=== PATIENT | female | born 1990 | race African-American/Black ===

== ENCOUNTER 2019-04-02 01:13 | Inpatient (IN) ==
[2019-04-02] MEDS ORDERED: SODIUM CHLORIDE 0.9% 1,000 ML IV STA (01:27)
[2019-04-02] MEDS ORDERED: diphenhydrAMINE 50 MG/1 ML VIAL IV STA (01:28)
[2019-04-02] MEDS ORDERED: HYDROmorphone 2 MG/1 ML VIAL IV STA ×3 (01:28→04:04)
[2019-04-02 01:52] LABS: Basophils # 0.1 10*3/uL (0.0-0.2); Basophils % 0.4 % (0.0-0.8); Eosinophils # 0.1 10*3/uL (0.0-0.87); Eosinophils % 0.7 % (0.00-10.9); Hemoglobin 7.6 GM/DL (12.0-16.0); Immature Granulocytes % 0.7 %; Immature Granulocytes Absolute 0.12 #; Lymphocytes # 2.7 10*3/uL (1.4-4.0); Mean Platelet Volume 8.7 FL (9.6-12.0); Monocytes % 5.5 % (1.7-12.7); NRBC # 0.05 10*3/uL; Neutrophils % 76.7 % (38.7-73.9); Platelet Count 220 T/CUMM (130-400); Red Blood Count 2.91 MC/CUMM (3.8-5.5); Red Cell Distribution Width 15.5 % (9.3-17.3); White Blood Count 16.6 T/CUMM (4-12)
[2019-04-02 02:33] LABS: Albumin 3.8 G/DL (3.4-5.0); Bilirubin,Total 1.1 MG/DL (0.2-1.0); Calcium 8.5 MG/DL (8.5-10.1); Osmolality,Calculated 279.3 MOS/KG (273-304); Total Protein 7.1 G/DL (6.4-8.3)
[2019-04-02] MEDS ORDERED: diphenhydrAMINE CAP 25 MG CAPSULE PO PRN (06:09)
[2019-04-02] MEDS ORDERED: oxyCODONE/ACETAMINOPHEN 5-325 MG TABLET PO PRN (06:09)
[2019-04-02] MEDS ORDERED: ONDANSETRON 4 MG/2 ML VIAL IV PRN (06:09)
[2019-04-02] MEDS ORDERED: ZALEPLON 5 MG CAPSULE PO PRN (06:09)
[2019-04-02] MEDS ORDERED: ACETAMINOPHEN 325 MG TABLET PO PRN (06:09)
[2019-04-02] MEDS: SODIUM CHLORIDE 0.9% 1,000 ML IV SCH ×4 (06:24→23:19)
[2019-04-02] MEDS: HYDROmorphone 2 MG/1 ML VIAL IV PRN ×5 (06:24→20:00)
[2019-04-02] MEDS: FOLIC ACID 1 MG TABLET PO SCH (08:40)
[2019-04-02] MEDS: PREGABALIN 75 MG CAPSULE PO SCH ×3 (08:40→20:54)
[2019-04-02] MEDS: ENOXAPARIN 40 MG/0.4 ML SYRINGE SUBCUT SCH (08:40)
[2019-04-03] MEDS: HYDROmorphone 2 MG/1 ML VIAL IV PRN ×6 (00:32→21:07)
[2019-04-03] MEDS: SODIUM CHLORIDE 0.9% 1,000 ML IV SCH ×4 (03:52→21:12)
[2019-04-03 05:23] LABS: Basophils % 0.3 % (0.0-0.8); Eosinophils # 0.2 10*3/uL (0.0-0.87); Eosinophils % 1.5 % (0.00-10.9); Hematocrit 21.2 VOL% (35.7-47.0); Hemoglobin 6.8 GM/DL (12.0-16.0); Immature Granulocytes % 0.4 %; Immature Granulocytes Absolute 0.05 #; Lymphocytes # 2.7 10*3/uL (1.4-4.0); Lymphocytes % 23.5 % (21.3-54.2); Mean Corpuscular HGB Conc 32.1 GM/DL (32-36); Mean Corpuscular Volume 79.4 FL (87-102); Mean Platelet Volume 9.8 FL (9.6-12.0); Monocytes % 6.3 % (1.7-12.7); NRBC # 0.04 10*3/uL; Platelet Count 178 T/CUMM (130-400); Red Blood Count 2.67 MC/CUMM (3.8-5.5); Red Cell Distribution Width 15.1 % (9.3-17.3); White Blood Count 11.4 T/CUMM (4-12)
[2019-04-03 05:37] LABS: Calcium 8.1 MG/DL (8.5-10.1); Osmolality,Calculated 273.5 MOS/KG (273-304)
[2019-04-03] MEDS: FOLIC ACID 1 MG TABLET PO SCH (08:28)
[2019-04-03] MEDS: PREGABALIN 75 MG CAPSULE PO SCH ×3 (08:28→21:06)
[2019-04-03] MEDS: ENOXAPARIN 40 MG/0.4 ML SYRINGE SUBCUT SCH (08:28)
[2019-04-03] MEDS ORDERED: SODIUM CHLORIDE 0.9% 1,000 ML IV PRN (12:47)
[2019-04-03 19:42] LABS: Hematocrit 26.5 VOL% (35.7-47.0); Hemoglobin 8.5 GM/DL (12.0-16.0)
[2019-04-04] MEDS: HYDROmorphone 2 MG/1 ML VIAL IV PRN ×3 (00:24→06:43)
[2019-04-04 05:12] LABS: Basophils # 0.1 10*3/uL (0.0-0.2); Basophils % 0.5 % (0.0-0.8); Eosinophils # 0.2 10*3/uL (0.0-0.87); Eosinophils % 2.1 % (0.00-10.9); Hematocrit 25.3 VOL% (35.7-47.0); Hemoglobin 8.2 GM/DL (12.0-16.0); Immature Granulocytes % 0.5 %; Immature Granulocytes Absolute 0.05 #; Lymphocytes # 2.8 10*3/uL (1.4-4.0); Lymphocytes % 29.3 % (21.3-54.2); Mean Corpuscular HGB Conc 32.4 GM/DL (32-36); Mean Corpuscular Volume 79.8 FL (87-102); Mean Platelet Volume 9.4 FL (9.6-12.0); Monocytes % 6.4 % (1.7-12.7); NRBC # 0.03 10*3/uL; Neutrophils % 61.2 % (38.7-73.9); Platelet Count 181 T/CUMM (130-400); Red Blood Count 3.17 MC/CUMM (3.8-5.5); Red Cell Distribution Width 15.7 % (9.3-17.3); White Blood Count 9.4 T/CUMM (4-12)
[2019-04-04 05:31] LABS: Calcium 8.3 MG/DL (8.5-10.1); Osmolality,Calculated 269.8 MOS/KG (273-304)
[2019-04-04] MEDS: SODIUM CHLORIDE 0.9% 1,000 ML IV SCH (05:35)
[2019-04-04 07:13] VITALS: BP 101/62
[2019-04-04] MEDS: PREGABALIN 75 MG CAPSULE PO SCH (09:09)
[2019-04-04] MEDS: FOLIC ACID 1 MG TABLET PO SCH (09:09)
[2019-04-04] MEDS: ENOXAPARIN 40 MG/0.4 ML SYRINGE SUBCUT SCH (09:10)
== END 2019-04-04 09:49 | disposition home or self-care (01) | DRG 812 ==
LOC: EDBD → EDUNIT# → N.ED 01:13 → N.EDINP 04:59 → SUATTDRO 04:59 → N.5E 05:54
PROVIDERS: ADMIT Internal Medicine; ATTEND Internal Medicine Geriatric Medicine

== ENCOUNTER 2019-04-30 01:46 | Observation (INO) ==
[2019-04-30] MEDS ORDERED: SODIUM CHLORIDE 0.9% 1,000 ML IV STA (01:59)
[2019-04-30] MEDS ORDERED: ONDANSETRON 4 MG/2 ML VIAL IV STA (02:00)
[2019-04-30] MEDS ORDERED: HYDROmorphone 2 MG/1 ML VIAL IV STA ×2 (02:00→02:43)
[2019-04-30 02:30] LABS: Basophils # 0.1 10*3/uL (0.0-0.2); Basophils % 0.8 % (0.0-0.8); Eosinophils # 0.3 10*3/uL (0.0-0.87); Eosinophils % 2.2 % (0.00-10.9); Hematocrit 28.6 VOL% (35.7-47.0); Hemoglobin 9.2 GM/DL (12.0-16.0); Immature Granulocytes % 0.4 %; Immature Granulocytes Absolute 0.04 #; Lymphocytes # 3.3 10*3/uL (1.4-4.0); Lymphocytes % 29.6 % (21.3-54.2); Mean Corpuscular HGB Conc 32.2 GM/DL (32-36); Mean Corpuscular Volume 80.1 FL (87-102); Mean Platelet Volume 8.5 FL (9.6-12.0); Monocytes % 6.9 % (1.7-12.7); NRBC # 0.03 10*3/uL; Neutrophils % 60.1 % (38.7-73.9); Platelet Count 188 T/CUMM (130-400); Red Blood Count 3.57 MC/CUMM (3.8-5.5); Red Cell Distribution Width 16.4 % (9.3-17.3); White Blood Count 11.2 T/CUMM (4-12)
[2019-04-30 02:40] LABS: Albumin 4.2 G/DL (3.4-5.0); Calcium 9.2 MG/DL (8.5-10.1); Osmolality,Calculated 279.3 MOS/KG (273-304); Total Protein 7.3 G/DL (6.4-8.3)
[2019-04-30] MEDS ORDERED: PROMETHAZINE 25 MG TABLET PO PRN (03:50)
[2019-04-30] MEDS ORDERED: ONDANSETRON 4 MG/2 ML VIAL IV PRN (03:50)
[2019-04-30] MEDS: SODIUM CHLORIDE 0.9% 1,000 ML IV SCH ×3 (05:30→22:30)
[2019-04-30] MEDS: FOLIC ACID 1 MG TABLET PO SCH (08:36)
[2019-04-30] MEDS: HYDROmorphone 2 MG/1 ML VIAL IV PRN ×5 (08:36→22:20)
[2019-04-30] MEDS: ENOXAPARIN 40 MG/0.4 ML SYRINGE SUBCUT SCH (09:00)
[2019-04-30] MEDS: PREGABALIN 75 MG CAPSULE PO SCH ×3 (09:00→22:13)
[2019-04-30 12:51] LABS: Risk Ratio 2.11; VLDL CHOLESTEROL 21.6 MG/DL
[2019-05-01] MEDS: HYDROmorphone 2 MG/1 ML VIAL IV PRN (01:27)
[2019-05-01] MEDS: oxyCODONE/ACETAMINOPHEN 5-325 MG TABLET PO PRN ×3 (01:28→11:56)
[2019-05-01] MEDS: SODIUM CHLORIDE 0.9% 1,000 ML IV SCH (03:59)
[2019-05-01 05:15] LABS: Basophils # 0.1 10*3/uL (0.0-0.2); Basophils % 0.4 % (0.0-0.8); Eosinophils # 0.4 10*3/uL (0.0-0.87); Eosinophils % 3.5 % (0.00-10.9); Hematocrit 23.8 VOL% (35.7-47.0); Hemoglobin 7.6 GM/DL (12.0-16.0); Immature Granulocytes % 0.5 %; Immature Granulocytes Absolute 0.06 #; Lymphocytes # 3.7 10*3/uL (1.4-4.0); Lymphocytes % 30.4 % (21.3-54.2); Mean Corpuscular HGB Conc 31.9 GM/DL (32-36); Mean Corpuscular Volume 80.7 FL (87-102); Mean Platelet Volume 9.3 FL (9.6-12.0); Monocytes % 5.2 % (1.7-12.7); NRBC # 0.03 10*3/uL; Platelet Count 173 T/CUMM (130-400); Red Blood Count 2.95 MC/CUMM (3.8-5.5); Red Cell Distribution Width 16.5 % (9.3-17.3); White Blood Count 12.3 T/CUMM (4-12)
[2019-05-01 05:59] LABS: Calcium 8.3 MG/DL (8.5-10.1)
[2019-05-01 06:05] LABS: Albumin 3.6 G/DL (3.4-5.0); Calcium 8.1 MG/DL (8.5-10.1); Osmolality,Calculated 278.3 MOS/KG (273-304)
[2019-05-01] MEDS ORDERED: SODIUM CHLORIDE 0.9% 1,000 ML IV PRN (06:45)
[2019-05-01] MEDS: FOLIC ACID 1 MG TABLET PO SCH (08:17)
[2019-05-01] MEDS: PREGABALIN 75 MG CAPSULE PO SCH ×2 (08:17→14:01)
[2019-05-01] MEDS: ENOXAPARIN 40 MG/0.4 ML SYRINGE SUBCUT SCH (08:19)
[2019-05-01 15:20] LABS: Hematocrit 31.2 VOL% (35.7-47.0); Hemoglobin 10.3 GM/DL (12.0-16.0)
[2019-05-01 15:40] VITALS: BP 92/56
== END 2019-05-01 17:50 | disposition home or self-care (01) ==
LOC: EDBD → EDUNIT# → N.ED 01:46 → N.EDINP 01:46 → N.4E 04:20
PROVIDERS: ADMIT Internal Medicine; ATTEND Internal Medicine

== ENCOUNTER 2020-11-09 22:08 | Inpatient (IN) ==
[2020-11-10] MEDS ORDERED: SODIUM CHLORIDE 0.9% 1,000 ML IV ONE (01:31)
[2020-11-10] MEDS ORDERED: SODIUM CHLORIDE 0.9% 1,000 ML IV SCH (02:00)
[2020-11-10 02:02] LABS: Basophils # 0.1 10*3/uL (0.0-0.2); Basophils % 0.4 % (0.0-0.8); Immature Granulocytes Absolute 0.98 #; Lymphocytes # 4.7 10*3/uL (1.4-4.0); Lymphocytes % 14.2 % (21.3-54.2); Mean Corpuscular HGB Conc 34.1 GM/DL (32-36); Mean Corpuscular Volume 72.9 FL (87-102); Mean Platelet Volume 10.1 FL (9.6-12.0); Monocytes % 13.5 % (1.7-12.7); NRBC # 9.76 10*3/uL; Neutrophils % 68.9 % (38.7-73.9); Platelet Count 199 T/CUMM (130-400); Red Blood Count 2.25 MC/CUMM (3.8-5.5); Red Cell Distribution Width 22.5 % (9.3-17.3); White Blood Count 32.9 T/CUMM (4-12)
[2020-11-10] MEDS ORDERED: NOREPINEPHRINE 8 MG in SODIUM CHLORIDE 0.9% 242 ML IV PRN (02:03)
[2020-11-10 02:12] LABS: Hematocrit 16.4 VOL% (35.7-47.0); Hemoglobin 5.6 GM/DL (12.0-16.0)
[2020-11-10 02:20] LABS: INR 1.2; PT Patient Result 13.3 SECS (10.5-12.0)
[2020-11-10 02:22] LABS: Albumin 3.4 G/DL (3.4-5.0); Bilirubin,Total 2.2 MG/DL (0.2-1.0); Calcium 7.6 MG/DL (8.5-10.1); Potassium 3.8 MMOL/L (3.5-5.1); Total Protein 6.6 G/DL (6.4-8.2)
[2020-11-10 02:37] LABS: Band Neutrophils 3 % (0-10); Lymphocytes 9 % (20-55); Metamyelocytes 1 %; Nucleated Red Blood Cells 51 (0-5); Platelet Estimate Normal; Segmented Neutrophils 81 % (50-85); Total Cells Counted 100
[2020-11-10 02:38] LABS: Polychromasia 1+; Sickle Cells 2+
[2020-11-10 02:39] LABS: Hypochromasia Slight; Microcytosis 2+; Target Cells Few
[2020-11-10 02:41] LABS: Ovalocytes Slight
[2020-11-10] MEDS ORDERED: ALBUTEROL 2.5 MG/3 ML NEB RESP TX PRN (02:44)
[2020-11-10] MEDS ORDERED: SODIUM CHLORIDE 0.9% 1,000 ML IV PRN (02:49)
[2020-11-10] MEDS ORDERED: NALOXONE 0.4 MG/ML VIAL IV PRN (02:53)
[2020-11-10] MEDS ORDERED: VANCOMYCIN INJ 1,500 MG in SODIUM CHLORIDE 0.9% 500 ML IV ONE (03:30)
[2020-11-10] MEDS: DEXTROSE 5% NACL 0.9% 1,000 ML IV SCH ×3 (03:45→18:17)
[2020-11-10] MEDS: ENOXAPARIN 40 MG/0.4 ML SYRINGE SUBCUT SCH (03:53)
[2020-11-10] MEDS: PANTOPRAZOLE 40 MG VIAL IV SCH (03:53)
[2020-11-10 04:04] LABS: Hepatitis B Core IgM Quant 0.08 Index; Hepatitis B Surface Ag Quant < 0.10 Index; Hepatitis B Surface Ag Result Non-Reactive (NonReactive); Hepatitis C Virus Ab Quant 0.03 Index; Hepatitis C Virus Ab Result Non-Reactive (NonReactive)
[2020-11-10 04:17] LABS: Basophils # 0.1 10*3/uL (0.0-0.2); Basophils % 0.4 % (0.0-0.8); Immature Granulocytes % 2.8 %; Immature Granulocytes Absolute 0.89 #; Lymphocytes # 4.5 10*3/uL (1.4-4.0); Lymphocytes % 14.5 % (21.3-54.2); Mean Corpuscular Volume 72.3 FL (87-102); Mean Platelet Volume 10.7 FL (9.6-12.0); Monocytes % 12.7 % (1.7-12.7); NRBC # 9.93 10*3/uL; Neutrophils % 69.6 % (38.7-73.9); Platelet Count 170 T/CUMM (130-400); Red Cell Distribution Width 22.5 % (9.3-17.3); White Blood Count 31.3 T/CUMM (4-12)
[2020-11-10 04:18] LABS: Hemoglobin 5.4 GM/DL (12.0-16.0)
[2020-11-10 04:19] LABS: Hematocrit 15.9 VOL% (35.7-47.0)
[2020-11-10 04:29] LABS: ABG Base Excess -1.7 MMOL/L (-2.5-2.5); ABG HCO3 22.9 MMOL/L (20-26); ABG Oxygen Saturation 91.5 % (95-100); ABG PCO2 36.5 MM HG (35-48); ABG PH 7.403 (7.35-7.45); ABG PO2 79.7 MM HG (80-95); Allen Test Positive
[2020-11-10] MEDS: CEFEPIME 1,000 MG in SODIUM CHLORIDE 0.9% 100 ML IV SCH ×4 (04:34→20:51)
[2020-11-10 04:38] LABS: INR 1.2; PT Patient Result 13.2 SECS (10.5-12.0)
[2020-11-10 04:51] LABS: Risk Ratio 2.97; VLDL CHOLESTEROL 46.4 MG/DL
[2020-11-10] MEDS: metroNIDAZOLE INJ 500 MG/100 ML PREMIX IV SCH ×3 (05:11→18:18)
[2020-11-10 06:16] LABS: Band Neutrophils 1 % (0-10); Lymphocytes 10 % (20-55); Nucleated Red Blood Cells 59 (0-5); Platelet Estimate Normal; Segmented Neutrophils 82 % (50-85); Total Cells Counted 100
[2020-11-10 06:17] LABS: Anisocytosis 2+; Hypochromasia 1+; Microcytosis 2+; Polychromasia 1+; Stomatocytes Few
[2020-11-10 06:18] LABS: Sickle Cells 2+; Target Cells 1+
[2020-11-10 06:19] LABS: Ovalocytes Few
[2020-11-10 08:15] LABS: Hemoglobin 7.6 GM/DL (12.0-16.0)
[2020-11-10] MEDS: VANCOMYCIN INJ 1,000 MG in SODIUM CHLORIDE 0.9% 250 ML IV SCH (15:16)
[2020-11-11 00:06] LABS: Calcium 7.4 MG/DL (8.5-10.1)
[2020-11-11 00:07] LABS: Bilirubin,Direct 0.79 MG/DL (0.0-0.20); Bilirubin,Total 1.8 MG/DL (0.2-1.0)
[2020-11-11 00:08] LABS: Albumin 3.3 G/DL (3.4-5.0); Total Protein 6.3 G/DL (6.4-8.2)
[2020-11-11 00:09] LABS: Potassium 4.2 MMOL/L (3.5-5.1)
[2020-11-11 00:12] LABS: Thyroid Stimulating Hormone 0.236 uIU/ml (0.358-3.74)
[2020-11-11] MEDS: DEXTROSE 5% NACL 0.9% 1,000 ML IV SCH ×2 (00:20→10:03)
[2020-11-11] MEDS: CEFEPIME 1,000 MG in SODIUM CHLORIDE 0.9% 100 ML IV SCH ×4 (02:48→20:36)
[2020-11-11] MEDS: ENOXAPARIN 40 MG/0.4 ML SYRINGE SUBCUT SCH (02:48)
[2020-11-11] MEDS: PANTOPRAZOLE 40 MG VIAL IV SCH (02:49)
[2020-11-11] MEDS: metroNIDAZOLE INJ 500 MG/100 ML PREMIX IV SCH ×3 (03:17→19:03)
[2020-11-11 03:50] LABS: Basophils # 0.1 10*3/uL (0.0-0.2); Basophils % 0.3 % (0.0-0.8); Eosinophils # 0.1 10*3/uL (0.0-0.87); Eosinophils % 0.3 % (0.00-10.9); Hematocrit 18.7 VOL% (35.7-47.0); Immature Granulocytes % 1.7 %; Immature Granulocytes Absolute 0.64 #; Lymphocytes % 7.8 % (21.3-54.2); Mean Corpuscular HGB Conc 34.2 GM/DL (32-36); Mean Corpuscular Volume 76.6 FL (87-102); Mean Platelet Volume 10.3 FL (9.6-12.0); Monocytes % 8.6 % (1.7-12.7); Neutrophils % 81.3 % (38.7-73.9); Platelet Count 176 T/CUMM (130-400); Red Blood Count 2.44 MC/CUMM (3.8-5.5); White Blood Count 38.1 T/CUMM (4-12)
[2020-11-11 03:51] LABS: Hemoglobin 6.4 GM/DL (12.0-16.0)
[2020-11-11 03:58] LABS: Albumin 2.7 G/DL (3.4-5.0); Bilirubin,Total 1.6 MG/DL (0.2-1.0); Calcium 7.6 MG/DL (8.5-10.1); Osmolality,Calculated 276.4 MOS/KG (273-304); Potassium 2.8 MMOL/L (3.5-5.1); Total Protein 5.9 G/DL (6.4-8.2)
[2020-11-11 04:06] LABS: Band Neutrophils 3 % (0-10); Lymphocytes 9 % (20-55); Macrocytosis Slight; Nucleated Red Blood Cells 43 (0-5); Pappenheimer Bodies Few; Platelet Estimate Adequate; Polychromasia Slight; Segmented Neutrophils 81 % (50-85); Sickle Cells 1+; Total Cells Counted 100
[2020-11-11 04:07] LABS: Hypochromasia 1+
[2020-11-11] MEDS ORDERED: POTASSIUM CHLORIDE 20 MEQ TABLET PO ONE (04:12)
[2020-11-11] MEDS ORDERED: MAGNESIUM SULF RIDER 2 GM/50 ML PREMIX IV PRN (04:18)
[2020-11-11] MEDS: VANCOMYCIN INJ 1,000 MG in SODIUM CHLORIDE 0.9% 250 ML IV SCH (05:04)
[2020-11-11] MEDS: POTASSIUM CHLORIDE 20 MEQ TABLET PO PRN ×4 (12:40→19:03)
[2020-11-11 13:08] LABS: Calcium 7.5 MG/DL (8.5-10.1); Osmolality,Calculated 286.1 MOS/KG (273-304)
[2020-11-11] MEDS ORDERED: ONDANSETRON 4 MG TABLET PO PRN (15:43)
[2020-11-11] MEDS ORDERED: HYDROmorphone 2 MG TABLET PO PRN (15:43)
[2020-11-11] MEDS ORDERED: ERGOCALCIFEROL 50,000 UNIT CAPSULE PO SCH (16:00)
[2020-11-12] MEDS: ENOXAPARIN 40 MG/0.4 ML SYRINGE SUBCUT SCH (02:33)
[2020-11-12] MEDS: CEFEPIME 1,000 MG in SODIUM CHLORIDE 0.9% 100 ML IV SCH ×2 (02:33→08:30)
[2020-11-12] MEDS: metroNIDAZOLE INJ 500 MG/100 ML PREMIX IV SCH (02:33)
[2020-11-12 03:14] LABS: Basophils # 0.2 10*3/uL (0.0-0.2); Basophils % 0.5 % (0.0-0.8); Eosinophils # 0.3 10*3/uL (0.0-0.87); Eosinophils % 0.8 % (0.00-10.9); Hematocrit 22.3 VOL% (35.7-47.0); Hemoglobin 7.7 GM/DL (12.0-16.0); Immature Granulocytes % 3.3 %; Lymphocytes # 3.5 10*3/uL (1.4-4.0); Lymphocytes % 10.5 % (21.3-54.2); Mean Corpuscular HGB Conc 34.5 GM/DL (32-36); Mean Corpuscular Volume 76.1 FL (87-102); Mean Platelet Volume 10.9 FL (9.6-12.0); Monocytes % 9.2 % (1.7-12.7); Neutrophils % 75.7 % (38.7-73.9); Platelet Count 218 T/CUMM (130-400); Red Blood Count 2.93 MC/CUMM (3.8-5.5); Red Cell Distribution Width 25.3 % (9.3-17.3); White Blood Count 33.3 T/CUMM (4-12)
[2020-11-12 03:40] LABS: Lymphocytes 13 % (20-55); Nucleated Red Blood Cells 117 (0-5); Platelet Estimate Normal; Segmented Neutrophils 79 % (50-85); Total Cells Counted 100
[2020-11-12 03:41] LABS: Hypochromasia 1+; Microcytosis 2+; Target Cells 1+
[2020-11-12 03:42] LABS: Polychromasia Few; Sickle Cells 1+
[2020-11-12 03:43] LABS: Ovalocytes Slight
[2020-11-12 04:08] LABS: Calcium 8.5 MG/DL (8.5-10.1); Osmolality,Calculated 274.4 MOS/KG (273-304); Potassium 3.5 MMOL/L (3.5-5.1)
[2020-11-12] MEDS: POTASSIUM CHLORIDE 20 MEQ TABLET PO PRN ×2 (04:24→06:10)
[2020-11-12] MEDS: PANTOPRAZOLE 40 MG TABLET PO SCH (08:27)
[2020-11-12] MEDS: CEFUROXIME 250 MG TABLET PO SCH (20:53)
[2020-11-13 07:47] LABS: Basophils # 0.2 10*3/uL (0.0-0.2); Basophils % 0.6 % (0.0-0.8); Eosinophils # 0.1 10*3/uL (0.0-0.87); Eosinophils % 0.4 % (0.00-10.9); Hematocrit 24.2 VOL% (35.7-47.0); Hemoglobin 8.2 GM/DL (12.0-16.0); Immature Granulocytes % 4.6 %; Immature Granulocytes Absolute 1.42 #; Lymphocytes # 2.2 10*3/uL (1.4-4.0); Lymphocytes % 7.1 % (21.3-54.2); Mean Corpuscular HGB Conc 33.9 GM/DL (32-36); Mean Corpuscular Volume 78.1 FL (87-102); Mean Platelet Volume 10.4 FL (9.6-12.0); Monocytes % 11.7 % (1.7-12.7); NRBC # 39.37 10*3/uL; Neutrophils % 75.6 % (38.7-73.9); Platelet Count 264 T/CUMM (130-400); Red Cell Distribution Width 26.6 % (9.3-17.3); White Blood Count 30.8 T/CUMM (4-12)
[2020-11-13 08:06] LABS: Elliptocytes Few; Hypochromasia 1+; Lymphocytes 12 % (20-55); Macrocytosis Slight; Nucleated Red Blood Cells 176 (0-5); Platelet Estimate Adequate; Polychromasia Slight; Segmented Neutrophils 77 % (50-85); Sickle Cells 1+; Total Cells Counted 100
[2020-11-13 08:11] LABS: Calcium 9.5 MG/DL (8.5-10.1); Osmolality,Calculated 268.1 MOS/KG (273-304); Potassium 2.9 MMOL/L (3.5-5.1)
[2020-11-13] MEDS: PANTOPRAZOLE 40 MG TABLET PO SCH (09:00)
[2020-11-13] MEDS: POTASSIUM CHLORIDE 20 MEQ TABLET PO PRN ×2 (09:00→09:04)
[2020-11-13] MEDS: CEFUROXIME 250 MG TABLET PO SCH (09:04)
[2020-11-13 11:56] VITALS: BP 115/67
== END 2020-11-13 14:55 | disposition home or self-care (01) | DRG 917 ==
LOC: SUATTDRO 11-10 01:00 → N.ICU 11-10 01:00 → N.4E 11-12 17:40
PROVIDERS: ADMIT Internal Medicine; ATTEND Internal Medicine